=== PATIENT | female | born 1985 | race Caucasian/White ===

== ENCOUNTER 2016-09-01 23:07 | Emergency (ER) | payer BC ==
[~2016-09-01] VITALS: Ht 157.5 cm; Wt 77.1 kg
[~2016-09-01 23:07] MED LIST: AMOXICILLIN875 MG PO; BACLOFEN PO; CLARITIN10 M3 PO; DICLOFENAC PO; FLONASE 0.05% N16 G1; LASIX20 MG PO; MAGIC MOUTHWASH; MOBIC PO; MUCINEX D ER T1 EACH PO; NO MEDICATIONS; NORCO 7.5/325MG PO; PANTOPRAZOLE SO40 MG PO; PRILOSEC PO; SIMETHICONE120 ML PO; TUMS500 M1 PO; TYLENOL EXTRA500 M1 PO; WATER PILL; ZITHROMAX
[2016-09-01] MEDS ORDERED: NO MEDICATIONS (23:19)
== END 2016-09-02 00:16 | disposition home or self-care (01) ==
LOC: SED 23:07
DX: R21 Rash and other nonspecific skin eruption (principal); F17.210 Nicotine dependence, cigarettes, uncomplicated
CPT/HCPCS: 99282

== ENCOUNTER 2016-09-04 16:29 | Emergency (ER) | payer BC ==
[~2016-09-04] VITALS: Ht 157.5 cm; Wt 77.1 kg
== END 2016-09-04 19:07 | disposition home or self-care (01) ==
LOC: CED 16:29 → CFTX 16:29
DX: B02.9 Zoster without complications (principal); K21.9 Gastro-esophageal reflux disease without esophagitis; F17.210 Nicotine dependence, cigarettes, uncomplicated
CPT/HCPCS: 99282